=== PATIENT | female | born 1940 | race Caucasian/White ===

== ENCOUNTER 2017-06-23 06:58 | Outpatient (CLI) | payer MEDICARE, OTHER ==
[2017-06-23 07:26] LABS: Anion Gap 13 mmol/L (10-20); BUN (Urea Nitrogen) 21 mg/dL (9.8-20.1); Calc. Creatinine Clearance 0 mL/min (70-130); Calcium 9.4 mg/dL (7.8-10.44); Carbon Dioxide 26 mmol/L (23-31); Chloride 108 mmol/L (98-107); Estimated GFR-MDRD 69
[2017-06-23 07:55] LABS: Hematocrit 35.5 % (36.0-47.0); Mean Platelet Volume 7.9 fL (7.4-10.4); Red Blood Cell (RBC) Count 3.83 mill/uL (4.20-5.40); White Blood Cell (WBC) Count 6.9 thou/uL (4.8-10.8)
--- NOTE | 2017-06-23 08:14 | RAD ---
RADIOGRAPH CHEST 2 VIEWS: HISTORY: 76-year-old female with dyspnea. FINDINGS: There is no air space density, pulmonary edema, pleural effusion, pneumothorax, or cardiomegaly. The re is a prominent levoscoliosis with apex of curvature near the thoracolumbar junction. IMPRESSION: 1. No acute cardiopulmonary findings. 2. Scoliosis. alma POS: ANGELA
== END 2017-06-23 06:59 | disposition home or self-care (01) ==
LOC: SCSRAD 06:58
PROVIDERS: ATTEND Internal Medicine Cardiovascular Disease
DX: R06.02 Shortness of breath (principal); R06.00 Dyspnea, unspecified; I48.91 Unspecified atrial fibrillation; M41.9 Scoliosis, unspecified
CPT/HCPCS: 36415; 71020; 80048; 83880; 85027

== ENCOUNTER 2017-06-26 09:35 | Emergency (ER) | payer MEDICARE, OTHER ==
[2017-06-26 09:51] LABS: Bilirubin Negative (Negative); Blood, Urine Trace (Negative); Glucose, Urine (Dipstick) Negative (Negative); Ketone, Urine Negative (Negative); Nitrite Positive (Negative); Protein, Urine (Dipstick) Negative (Neg-Trace); Urobilinogen 0.2 mg/dL (0.2-1.0)
[2017-06-26 10:02] LABS: Bacteria/HPF 4+ HPF (None Seen)
== END 2017-06-26 10:00 | disposition home or self-care (01) ==
LOC: SCSER 09:35
DX: N39.0 Urinary tract infection, site not specified (principal); E03.9 Hypothyroidism, unspecified; E78.5 Hyperlipidemia, unspecified; Z79.899 Other long term (current) drug therapy
CPT/HCPCS: 81003; 81015; 87077; 87086; 87186; 99283

== ENCOUNTER 2022-09-10 08:45 | Outpatient (CLI) | payer MEDICARE, OTHER ==
[2022-09-10] MEDS ORDERED: Iopamidol 370 76% 100 ML VIAL ONE (15:50)
== END 2022-09-10 08:46 | disposition home or self-care (01) ==
LOC: CT 08:45
PROVIDERS: ATTEND Urology
DX: N28.89 Other specified disorders of kidney and ureter (principal); N28.9 Disorder of kidney and ureter, unspecified
CPT/HCPCS: 74170; 82565; Q9967

== ENCOUNTER 2022-10-07 19:30 | Outpatient (CLI) | payer MEDICARE, OTHER | END 2022-10-07 19:31 | disposition home or self-care (01) | LOC: SLEEPLAB 19:30 | PROVIDERS: ATTEND Physician Assistant | DX: G47.33 Obstructive sleep apnea (adult) (pediatric) (principal); R53.83 Other fatigue; I48.91 Unspecified atrial fibrillation; I10 Essential (primary) hypertension | CPT/HCPCS: 95811 ==

== ENCOUNTER 2024-06-13 10:52 | Outpatient (CLI) | payer MEDICARE, OTHER | END 2024-06-13 10:53 | disposition home or self-care (01) | LOC: SCSRAD 10:52 | PROVIDERS: ATTEND Physician Assistant | DX: R07.9 Chest pain, unspecified (principal) | CPT/HCPCS: 71046 ==